=== PATIENT | female | born 1995 | race Caucasian/White ===

== ENCOUNTER 2023-08-09 11:14 | Outpatient (REF) | payer OTHER, SELFPAY ==
[2023-08-09 12:34] LABS: Anion Gap 13 (12-20); Blood Urea Nitrogen 14 mg/dL (9-16); Calcium 9.4 mg/dL (8.4-10.2); Carbon Dioxide 24 mmol/L (22-29); Chloride 108 mmol/L (96-108); Estimated Glomerular Filt Rate > 60; Glucose Fasting 82 mg/dL (60-99); Potassium 4.4 mmol/L (3.3-5.1); Sodium 141 mmol/L (135-145)
[2023-08-09 13:08] LABS: Vitamin B12 470 pg/mL (200-900)
[2023-08-10 17:09] LABS: Lyme Abs Screen <0.90 index
[2023-08-10 21:28] LABS: Prot Elec - Albumin 4.3 g/dL (3.8-4.8); Prot Elec - Alpha1 0.3 g/dL (0.2-0.3); Prot Elec - Alpha2 0.6 g/dL (0.5-0.9); Prot Elec - Beta 1 0.4 g/dL (0.4-0.6); Prot Elec - Beta 2 0.3 g/dL (0.2-0.5); Prot Elec - Total Protein 6.8 g/dL (6.1-8.1)
[2023-08-11 10:08] LABS: IgA 123 mg/dL (47-310); IgG 1052 mg/dL (600-1640); IgM 98 mg/dL (50-300)
== END 2023-08-09 11:15 | disposition home or self-care (01) ==
LOC: HO.LAB 11:14
PROVIDERS: Visit Provider Psychiatry & Neurology Neurology
DX: G62.9 Polyneuropathy, unspecified (principal)
CPT/HCPCS: 80048; 82607; 82746; 82784; 84165; 86334; 86617; 86618

== ENCOUNTER 2023-08-10 11:55 | Outpatient (REF) | payer OTHER, SELFPAY ==
[2023-08-13 08:29] LABS: PEU-Protein Creat Ratio Rand 0.041 (0.024-0.184); PEU-Rand. Prot/Creat Ratio 41 mg/g creat (24-184); PEU-Random Ur. Gamma Globulin 0 %; PEU-Random Urine A1 Globulin 0 %; PEU-Random Urine A2 Globulin 0 %; PEU-Random Urine Albumin 100 %; PEU-Random Urine Beta Globulin 0 %; PEU-Random Urine Creatinine 245 mg/dL (20-275); PEU-Random Urine Protein 10 mg/dL (5-24)
== END 2023-08-10 11:56 | disposition home or self-care (01) ==
LOC: HO.LNP 11:55
PROVIDERS: Visit Provider Psychiatry & Neurology Neurology
DX: G62.9 Polyneuropathy, unspecified (principal)
CPT/HCPCS: 82570; 84156; 84166